=== PATIENT | male | born 1950 | race Caucasian/White ===

== ENCOUNTER 2017-02-22 19:02 | Emergency (ER) | payer MEDICARE, MEDICAID ==
[~2017-02-22] VITALS: Ht 172.7 cm; Wt 59.0 kg
[2017-02-22 19:28] VITALS: BP 105/68
[2017-02-22 20:13] LABS: Basophils # (auto) 0 uL; Basophils % (auto) 0.4 % (0.0-2.0); Eosinophils # (auto) 0 uL; Eosinophils % (auto) 0.1 % (0.0-7.0); Hematocrit 50.6 % (41.0-53.0); Hemoglobin 16.9 g/dL (13.5-17.5); Lymphocytes % (auto) 11.2 % (10.0-50.0); Mean Corpuscular Hemoglobin 32.6 pg (28.0-32.0); Mean Corpuscular Hgb Conc. 33.3 g/dL (32.0-36.0); Mean Platelet Volume 9.1 fL (7.4-10.4); Monocytes # (auto) 0.7 uL; Monocytes % (auto) 8.5 % (0.0-12.0); Neutrophils % (auto) 79.8 % (37.0-80.0); Platelet Count (auto) 153 10^3/uL (140-450); Red Cell Distribution Width 13.9 % (11.6-16.0); White Blood Cell 8.8 10^3/uL (4.4-10.8)
[2017-02-22 20:37] LABS: Albumin 3.3 g/dL (3.4-5.0); Alkaline Phosphatase 80 U/L (45-117); Anion Gap 11 (5-15); Aspartate Aminotransferase 25 U/L (15-37); BUN/Creatinine Ratio 10.8; Bilirubin, Total 0.6 mg/dL (0.2-1.0); Blood Urea Nitrogen 11 mg/dL (7-18); Calcium 8.8 mg/dL (8.5-10.1); Carbon Dioxide 28 mmol/L (21-32); Chloride 91 mmol/L (98-107); GFR African American 95 mL/min; GFR Non-African American 78 mL/min; Glucose 115 mg/dL (74-106); Magnesium 2.1 mg/dL (1.6-2.6); Potassium 3.8 mmol/L (3.5-5.1); Sodium 130 mmol/L (136-145); Total Protein 7.6 g/dL (6.4-8.2)
[2017-02-22 21:02] LABS: INR 0.96 (0.9-1.15); Partial Thromboplastin Time 34.3 sec (22.64-33.71); Prothrombin Time 10.4 sec (9.37-12.3)
[2017-02-22 21:19] LABS: Temperature: 21.9 C (20.0-25.0)
== END 2017-02-22 22:20 | disposition left against medical advice (07) ==
LOC: ER 19:04
DX: R07.89 Other chest pain (principal); R06.02 Shortness of breath; Z53.21 Procedure and treatment not carried out due to patient leaving prior to being seen by health care provider
CPT/HCPCS: 36415; 71020; 80053; 83735; 83880; 84484; 85025; 85610; 85730; 93005

== ENCOUNTER 2018-02-09 08:59 | Inpatient (IN) | payer MEDICARE, MEDICAID ==
[~2018-02-09] VITALS: Ht 172.7 cm; Wt 60.1 kg
[2018-02-09 09:47] LABS: Eosinophils # (auto) 0.2 uL; Eosinophils % (auto) 2.1 % (0.0-7.0); Hemoglobin 15.8 g/dL (13.5-17.5); Lymphocytes # (auto) 1.1 uL; Mean Corpuscular Volume 97.9 fL (80.0-100.0); Monocytes # (auto) 0.8 uL
[2018-02-09 09:48] LABS: Basophils # (auto) 0 uL; Basophils % (auto) 0.6 % (0.0-2.0); Hematocrit 44.9 % (41.0-53.0); Lymphocytes % (auto) 14.7 % (10.0-50.0); Mean Corpuscular Hemoglobin 34.4 pg (28.0-32.0); Mean Corpuscular Hgb Conc. 35.1 g/dL (32.0-36.0); Monocytes % (auto) 11.3 % (0.0-12.0); Neutrophils # (auto) 5.3 uL; Neutrophils % (auto) 71.3 % (37.0-80.0); Platelet Count (auto) 203 10^3/uL (140-450); Red Blood Cells 4.58 10^6/uL (4.5-5.90); Red Cell Distribution Width 13.8 % (11.8-14.3); White Blood Cell 7.5 10^3/uL (4.4-10.8)
[2018-02-09 09:57] LABS: Alanine Aminotransferase 19 U/L (16-61); Albumin 3.4 g/dL (3.4-5.0); Anion Gap 6 (5-15); Aspartate Aminotransferase 13 U/L (15-37); BUN/Creatinine Ratio 6.7; Blood Urea Nitrogen 7 mg/dL (7-18); Calcium 9.1 mg/dL (8.5-10.1); Carbon Dioxide 26 mmol/L (21-32); Chloride 99 mmol/L (98-107); GFR African American 91 mL/min; GFR Non-African American 75 mL/min; Glucose 124 mg/dL (74-106); Magnesium 2.1 mg/dL (1.6-2.6); Potassium 4.4 mmol/L (3.5-5.1); Sodium 131 mmol/L (136-145)
[2018-02-09 10:02] LABS: Alkaline Phosphatase 96 U/L (45-117); Bilirubin, Total 0.9 mg/dL (0.2-1.0); Total Protein 7.5 g/dL (6.4-8.2)
[2018-02-09] MEDS ORDERED: IPRATROPIUM BROM 0.5 MG/2.5ML INH SOL HHN ONE (15:15)
[2018-02-09] MEDS ORDERED: cefTRIAXone 1GM/10ml IVPUSH 10 ML IV ONE (15:15)
[2018-02-09] MEDS ORDERED: ALBUTEROL SULF 2.5 MG/0.5ML(0.5%) NEB SOLN HHN ONE (15:15)
[2018-02-09] MEDS ORDERED: methylPREDNISolone SOD SUCC 125 MG/2 ML VL IV ONE (15:15)
[2018-02-09 16:49] LABS: Magnesium 2.1 mg/dL (1.6-2.6)
[2018-02-09] MEDS ORDERED: HYDROcodone-ACET 10/325MG TAB PO ONE (17:00)
[2018-02-09] MEDS ORDERED: ALBUTEROL SULF 2.5 MG/0.5ML(0.5%) NEB SOLN NEB PRN (18:15)
[2018-02-09] MEDS ORDERED: TEMAZEPAM 15 MG CAP PO PRN (18:15)
[2018-02-09] MEDS ORDERED: NITROGLYCERIN 0.4 MG SL TAB SL PRN (18:15)
[2018-02-09] MEDS ORDERED: LORazepam 0.5 MG TAB PO PRN (18:15)
[2018-02-09] MEDS ORDERED: PROMETHAZINE HCL 25 MG/ML 1ML IV PRN (18:15)
[2018-02-09] MEDS ORDERED: ACETAMINOPHEN 500 MG TAB PO PRN (18:15)
[2018-02-09] MEDS ORDERED: LACTULOSE 20Gm/30ML SOLN PO PRN (18:15)
[2018-02-09] MEDS ORDERED: MORPHINE SULFATE 4 MG/ML SYR/VIAL IV PRN (18:15)
[2018-02-09] MEDS ORDERED: OSELTAMIVIR 75 MG CAP PO ONE (18:45)
[2018-02-09] MEDS ORDERED: ASPI81CH43 PO (20:48)
[2018-02-09] MEDS ORDERED: OMEP20CA74 PO (20:48)
[2018-02-09] MEDS ORDERED: ATOR40TA52 PO (20:48)
[2018-02-09] MEDS ORDERED: BEN10T PO (20:48)
[2018-02-09] MEDS ORDERED: METO25TA62 PO (20:48)
[2018-02-09] MEDS ORDERED: IPRIH INH (20:48)
[2018-02-09] MEDS: DOXYCYCLINE HYC 100MG/250ML 250 ML IV SCH (21:16)
[2018-02-09] MEDS: SODIUM CHLORIDE 0.9% 1,000 ML IV SCH (21:28)
[2018-02-09] MEDS: HYDROcodone-ACET 5/325MG TAB PO PRN (21:32)
[2018-02-09 21:55] VITALS: BP 119/68
[2018-02-09] MEDS: methylPREDNISolone SOD SUCC 40 MG/ML VL IV SCH (23:52)
[2018-02-10] VITALS (7 sets, daily range): BP systolic 118–158; BP diastolic 56–88
[2018-02-10] MEDS: IPRATROPIUM BROM 0.5 MG/2.5ML INH SOL NEB SCH ×4 (00:31→20:13)
[2018-02-10] MEDS: ALBUTEROL SULF 2.5 MG/0.5ML(0.5%) NEB SOLN NEB SCH ×4 (00:31→20:13)
[2018-02-10] MEDS: methylPREDNISolone SOD SUCC 40 MG/ML VL IV SCH ×4 (06:10→23:39)
[2018-02-10] MEDS: DOXYCYCLINE HYC 100MG/250ML 250 ML IV SCH ×2 (06:10→16:34)
[2018-02-10] MEDS: SODIUM CHLORIDE 0.9% 1,000 ML IV SCH (07:33)
[2018-02-10] MEDS: MORPHINE SULFATE 4 MG/ML SYR/VIAL IV PRN ×3 (08:57→21:42)
[2018-02-10] MEDS ORDERED: CILO100T PO (09:27)
[2018-02-10] MEDS ORDERED: ACET30TA15 PO (09:27)
[2018-02-10 09:41] LABS: Urine Bacteria NONE SEEN /hpf (None Seen); Urine Blood Negative /uL (Negative); Urine Specific Gravity 1.023 (1.001-1.035); Urine WBC 3 /hpf (0 - 3)
[2018-02-10] MEDS ORDERED: ENOXAPARIN SOD 40 MG/0.4 ML SYRINGE SC SCH (10:00)
[2018-02-10] MEDS ORDERED: OSELTAMIVIR 75 MG CAP PO SCH (10:00)
[2018-02-10] MEDS ORDERED: ASPirin 81 mg TAB PO ONE (11:00)
[2018-02-10] MEDS ORDERED: PANTOPRAZOLE 40 MG TAB PO ONE (11:15)
[2018-02-10] MEDS ORDERED: METOPROLOL TARTRATE 25 MG TAB PO ONE (11:15)
[2018-02-10] MEDS: HYDROcodone-ACET 5/325MG TAB PO PRN (13:52)
[2018-02-10] MEDS: METOPROLOL TARTRATE 25 MG TAB PO SCH (21:42)
[2018-02-10] MEDS ORDERED: ATORVASTATIN 20 MG TAB PO SCH (22:00)
[2018-02-11] MEDS: IPRATROPIUM BROM 0.5 MG/2.5ML INH SOL NEB SCH ×3 (00:52→13:38)
[2018-02-11] MEDS: ALBUTEROL SULF 2.5 MG/0.5ML(0.5%) NEB SOLN NEB SCH ×3 (00:52→13:39)
[2018-02-11] MEDS: HYDROcodone-ACET 5/325MG TAB PO PRN ×2 (05:01→12:06)
[2018-02-11 05:03] VITALS: BP 103/59
[2018-02-11] MEDS: methylPREDNISolone SOD SUCC 40 MG/ML VL IV SCH ×2 (05:58→12:05)
[2018-02-11] MEDS: DOXYCYCLINE HYC 100MG/250ML 250 ML IV SCH (05:58)
[2018-02-11 08:48] LABS: Basophils # (auto) 0 uL; Basophils % (auto) 0.2 % (0.0-2.0); Eosinophils # (auto) 0 uL; Eosinophils % (auto) 0.1 % (0.0-7.0); Hematocrit 39.5 % (41.0-53.0); Hemoglobin 13.5 g/dL (13.5-17.5); Lymphocytes # (auto) 0.7 uL; Lymphocytes % (auto) 7.8 % (10.0-50.0); Mean Corpuscular Hemoglobin 33.9 pg (28.0-32.0); Mean Corpuscular Hgb Conc. 34.2 g/dL (32.0-36.0); Mean Corpuscular Volume 99.1 fL (80.0-100.0); Monocytes # (auto) 0.5 uL; Monocytes % (auto) 5.1 % (0.0-12.0); Neutrophils # (auto) 8.2 uL; Neutrophils % (auto) 86.8 % (37.0-80.0); Platelet Count (auto) 197 10^3/uL (140-450); Red Blood Cells 3.99 10^6/uL (4.5-5.90); Red Cell Distribution Width 13.3 % (11.8-14.3); White Blood Cell 9.4 10^3/uL (4.4-10.8)
[2018-02-11 09:00] VITALS: BP 104/54
[2018-02-11 09:02] LABS: BUN/Creatinine Ratio 16.7; Calcium 8.8 mg/dL (8.5-10.1); Potassium 4.4 mmol/L (3.5-5.1)
[2018-02-11] MEDS: METOPROLOL TARTRATE 25 MG TAB PO SCH (09:32)
[2018-02-11] MEDS ORDERED: ASPirin 81 mg TAB PO SCH (10:00)
[2018-02-11] MEDS ORDERED: PANTOPRAZOLE 40 MG TAB PO SCH (10:00)
[2018-02-11 13:00] VITALS: BP 105/60
== END 2018-02-11 15:53 | disposition home or self-care (01) | DRG 193 ==
LOC: EDBD 08:59 → ER 08:59 → TELE 09:00 → TELE-EAST 19:54 → EAST 02-10 22:12
PROVIDERS: ADMIT Internal Medicine; ATTEND Internal Medicine
DX: J18.9 Pneumonia, unspecified organism (principal); J96.00 Acute respiratory failure, unspecified whether with hypoxia or hypercapnia; I95.9 Hypotension, unspecified; I50.9 Heart failure, unspecified; E87.1 Hypo-osmolality and hyponatremia; J44.0 Chronic obstructive pulmonary disease with (acute) lower respiratory infection; J44.1 Chronic obstructive pulmonary disease with (acute) exacerbation; I25.10 Atherosclerotic heart disease of native coronary artery without angina pectoris; F17.210 Nicotine dependence, cigarettes, uncomplicated; I25.2 Old myocardial infarction; Z95.1 Presence of aortocoronary bypass graft
CPT/HCPCS: 36415; 71046; 80048; 80053; 81001; 83605; 83735; 83880; 84484; 85025; 87040; 87070; 87205; 87804; 93005; 93306; 94640; 96372; 96374; 96375; J3490

== ENCOUNTER 2019-02-05 13:14 | Emergency (ER) | payer MEDICARE, MEDICAID ==
[~2019-02-05] VITALS: Ht 172.7 cm; Wt 59.0 kg
[~2019-02-05 13:14] MED LIST: ACET30TA15 PO; ASPI81CH43 PO; ATOR40TA52 PO; BEN10T PO; CILO100T PO; IPRIH INH; METO25TA62 PO; OMEP20CA74 PO
[2019-02-05 15:18] VITALS: BP 137/68
== END 2019-02-05 16:02 | disposition home or self-care (01) ==
LOC: ER 13:16
DX: M25.532 Pain in left wrist (principal); I25.10 Atherosclerotic heart disease of native coronary artery without angina pectoris; J44.9 Chronic obstructive pulmonary disease, unspecified; I50.9 Heart failure, unspecified; Z79.82 Long term (current) use of aspirin; Z79.899 Other long term (current) drug therapy; Z95.1 Presence of aortocoronary bypass graft; Z77.22 Contact with and (suspected) exposure to environmental tobacco smoke (acute) (chronic)
CPT/HCPCS: 29125; 73110

== ENCOUNTER 2019-03-16 10:39 | Emergency (ER) | payer MEDICARE, MEDICAID ==
[~2019-03-16] VITALS: Ht 172.7 cm; Wt 59.0 kg
[2019-03-16 10:46] VITALS: BP 136/74
[2019-03-16] MEDS ORDERED: KETOROLAC TROMETH 60MG/2ML VIAL IM ONE (12:30)
== END 2019-03-16 12:39 | disposition home or self-care (01) ==
LOC: ER 10:39
DX: M77.9 Enthesopathy, unspecified (principal); M19.032 Primary osteoarthritis, left wrist; J44.9 Chronic obstructive pulmonary disease, unspecified; Z77.22 Contact with and (suspected) exposure to environmental tobacco smoke (acute) (chronic); Z95.1 Presence of aortocoronary bypass graft; Z79.82 Long term (current) use of aspirin; Z79.899 Other long term (current) drug therapy; X50.1XXA Overexertion from prolonged static or awkward postures, initial encounter; Y93.89 Activity, other specified; Y92.89 Other specified places as the place of occurrence of the external cause; Y99.8 Other external cause status
CPT/HCPCS: 29125; 73110; 73130; 96372; 99283; J1885

== ENCOUNTER 2022-05-13 11:29 | Emergency (ER) | payer MEDICARE, MEDICAID ==
[~2022-05-13] VITALS: Ht 172.7 cm; Wt 61.2 kg
[~2022-05-13 11:29] MED LIST changes: -BEN10T PO; +BENA10TA14 PO; -METO25TA62 PO; +METO25TA93 PO
[2022-05-13] MEDS ORDERED: cefTRIAXone W LIDOCAINE 1 GM IM IM ONE (12:30)
[2022-05-13] MEDS ORDERED: CEPH-322 PO (15:26)
[2022-05-13 15:35] VITALS: BP 131/66
== END 2022-05-13 15:38 | disposition home or self-care (01) ==
LOC: ER 11:46
DX: L03.114 Cellulitis of left upper limb (principal); J44.9 Chronic obstructive pulmonary disease, unspecified; I25.10 Atherosclerotic heart disease of native coronary artery without angina pectoris; Z95.1 Presence of aortocoronary bypass graft; Z87.891 Personal history of nicotine dependence; Z79.82 Long term (current) use of aspirin; Z79.899 Other long term (current) drug therapy
CPT/HCPCS: 73130; 99283; J0696

== ENCOUNTER 2022-11-02 14:29 | Emergency (ER) | payer MEDICARE, MEDICAID ==
[~2022-11-02] VITALS: Ht 172.7 cm; Wt 62.0 kg
[~2022-11-02 14:29] MED LIST changes: +CEPH-322 PO
[2022-11-02 14:44] VITALS: BP 121/92
[2022-11-02 16:31] LABS: Basophils # (auto) 0 10 ^3/uL (0-0.2); Basophils % (auto) 0.4 % (0.0-2.0); Eosinophils # (auto) 0 10 ^3/uL (0-0.8); Eosinophils % (auto) 0.2 % (0.0-7.0); Hematocrit 48.2 % (41.0-53.0); Hemoglobin 16.3 g/dL (13.5-17.5); Lymphocytes # (auto) 0.5 10 ^3/uL (0.4-5.4); Lymphocytes % (auto) 8.3 % (10.0-50.0); Mean Corpuscular Hemoglobin 33.4 pg (28.0-32.0); Mean Corpuscular Hgb Conc. 33.8 g/dL (32.0-36.0); Mean Corpuscular Volume 98.8 fL (80.0-100.0); Monocytes # (auto) 0.7 10 ^3/uL (0-1.3); Monocytes % (auto) 11.4 % (0.0-12.0); Neutrophils # (auto) 4.7 10 ^3/uL (1.6-8.6); Neutrophils % (auto) 79.7 % (37.0-80.0); Nucleated Red Blood Cells % 0.1 %; Red Blood Cells 4.88 10^6/uL (4.5-5.90); Red Cell Distribution Width 14.3 % (11.8-14.3); White Blood Cell 5.9 10^3/uL (4.4-10.8)
[2022-11-02 16:55] LABS: Potassium 4.8 mmol/L (3.5-5.1)
[2022-11-02 17:00] LABS: Albumin 3.8 g/dL (3.4-5.0); BUN/Creatinine Ratio 9.3; Bilirubin, Total 0.7 mg/dL (0.2-1.0); Calcium 9.1 mg/dL (8.5-10.1)
[2022-11-02] MEDS: ALBUTEROL SULF 2.5 MG/0.5ML(0.5%) NEB SOLN NEB ONE ×2 (20:38→20:57)
[2022-11-02] MEDS ORDERED: FUROSEMIDE 40 MG/4 ML VIAL IM ONE (20:45)
[2022-11-02] MEDS ORDERED: DexAMETHasone SOD PHOS 10MG/1ML VIAL INJ IM ONE (20:45)
[2022-11-02] MEDS ORDERED: ALBUTEROL SULF 2.5 MG/0.5ML(0.5%) NEB SOLN NEB ONE (20:45)
[2022-11-03] MEDS: ALBUTEROL SULF 2.5 MG/0.5ML(0.5%) NEB SOLN NEB ONE ×3 (02:38→03:14)
== END 2022-11-03 03:51 | disposition left against medical advice (07) ==
LOC: ER 14:29
DX: J44.1 Chronic obstructive pulmonary disease with (acute) exacerbation (principal); E87.1 Hypo-osmolality and hyponatremia; R09.02 Hypoxemia; Z72.0 Tobacco use; Z20.822 Contact with and (suspected) exposure to COVID-19
CPT/HCPCS: 36415; 71046; 80053; 83880; 84484; 85025; 87426; 87804; 93005; 94640; 96372; 99291; J1100; J1940

== ENCOUNTER 2022-11-06 15:16 | Inpatient (IN) | payer MEDICARE, MEDICAID ==
[~2022-11-06] VITALS: Ht 172.7 cm; Wt 59.2 kg
[2022-11-06] MEDS ORDERED: ALBUTEROL SULF 2.5 MG/0.5ML(0.5%) NEB SOLN NEB ONE (16:00)
[2022-11-06] MEDS ORDERED: IPRATROPIUM BROM 0.5 MG/2.5ML INH SOL NEB ONE (16:00)
[2022-11-06] MEDS ORDERED: DexAMETHasone SOD PHOS 10MG/1ML VIAL INJ IM ONE (16:00)
[2022-11-06] MEDS ORDERED: methylPREDNISolone SOD SUCC 40 MG/ML VL IV SCH (22:00)
[2022-11-06] MEDS ORDERED: DOCUSATE SOD 100 MG CAP PO PRN (22:00)
[2022-11-06] MEDS ORDERED: ACETAMINOPHEN 325 MG TAB PO PRN (22:00)
[2022-11-06] MEDS ORDERED: ONDANSETRON HCL 4 MG/2 ML VIAL IV PRN (22:00)
[2022-11-06] MEDS ORDERED: MORPHINE SULFATE INJ 2 MG/ml SYRG IV PRN (22:00)
[2022-11-06] MEDS ORDERED: NITROGLYCERIN 0.4 MG SL TAB SL PRN (22:00)
[2022-11-06] MEDS ORDERED: hydrALAZINE HCL 20 MG/ML VL IV PRN (22:15)
[2022-11-06 22:39] LABS: Hematocrit 47.7 % (41.0-53.0); Hemoglobin 16.4 g/dL (13.5-17.5); Mean Corpuscular Hemoglobin 33.7 pg (28.0-32.0); Mean Corpuscular Hgb Conc. 34.4 g/dL (32.0-36.0); Red Blood Cells 4.87 10^6/uL (4.5-5.90); White Blood Cell 7.2 10^3/uL (4.4-10.8)
[2022-11-06 22:50] LABS: Basophils % (manual) 0 (0.0-2.0); Blast Cells 0; Eosinophils % (manual) 0 (0-7); Metamyelocytes % 0; Myelocytes % 0; Promyelocytes % 0; Reactive Lymphocytes 0
[2022-11-06 22:59] LABS: Albumin 3.5 g/dL (3.4-5.0); BUN/Creatinine Ratio 9.2; Calcium 9.3 mg/dL (8.5-10.1)
[2022-11-06 23:01] LABS: Bilirubin, Total 0.7 mg/dL (0.2-1.0); Total Protein 6.9 g/dL (6.4-8.2)
[2022-11-06 23:03] LABS: Potassium 4.7 mmol/L (3.5-5.1)
[2022-11-06 23:12] LABS: Band Neutrophils % (manual) 3; Lymphocytes % (manual) 5 (10.0-50.0); Monocytes % (manual) 3 (0-12)
[2022-11-06 23:45] VITALS: BP 116/69
[2022-11-07] MEDS: ATORVASTATIN 20 MG TAB PO SCH ×2 (02:11→22:21)
[2022-11-07] MEDS: FAMOTIDINE (10MG/ML) 2ML VL IV SCH ×3 (02:11→22:21)
[2022-11-07] MEDS: SODIUM CHLOR 0.9% PF (SALINE LOCK) 10ML VIAL/SYR IV SCH ×4 (02:16→22:21)
[2022-11-07 06:12] LABS: Basophils # (auto) 0 10 ^3/uL (0-0.2); Basophils % (auto) 0.3 % (0.0-2.0); Eosinophils # (auto) 0 10 ^3/uL (0-0.8); Hematocrit 46.8 % (41.0-53.0); Hemoglobin 16.3 g/dL (13.5-17.5); Lymphocytes # (auto) 0.4 10 ^3/uL (0.4-5.4); Lymphocytes % (auto) 7.7 % (10.0-50.0); Mean Corpuscular Hemoglobin 34.1 pg (28.0-32.0); Mean Corpuscular Hgb Conc. 34.8 g/dL (32.0-36.0); Mean Corpuscular Volume 97.9 fL (80.0-100.0); Monocytes # (auto) 0.1 10 ^3/uL (0-1.3); Monocytes % (auto) 2.1 % (0.0-12.0); Neutrophils # (auto) 4.1 10 ^3/uL (1.6-8.6); Neutrophils % (auto) 89.9 % (37.0-80.0); Nucleated Red Blood Cells % 0.2 %; Red Blood Cells 4.78 10^6/uL (4.5-5.90); Red Cell Distribution Width 13.7 % (11.8-14.3); White Blood Cell 4.6 10^3/uL (4.4-10.8)
[2022-11-07] MEDS: IPRATROPIUM BROM 0.5 MG/2.5ML INH SOL NEB PRN ×2 (06:26→18:38)
[2022-11-07] MEDS: ALBUTEROL SULF 2.5 MG/0.5ML(0.5%) NEB SOLN NEB PRN ×2 (06:26→18:38)
[2022-11-07 06:34] LABS: Potassium 4.6 mmol/L (3.5-5.1)
[2022-11-07 06:42] LABS: BUN/Creatinine Ratio 15.6; Bilirubin, Total 0.8 mg/dL (0.2-1.0); Calcium 9.1 mg/dL (8.5-10.1); Total Protein 6.9 g/dL (6.4-8.2)
[2022-11-07] MEDS: ASPirin 81 mg TAB PO SCH (09:28)
[2022-11-07] MEDS: methylPREDNISolone SOD SUCC 40 MG/ML VL IV SCH ×3 (09:28→22:21)
[2022-11-07] MEDS: SODIUM CHLORIDE 0.9% 1,000 ML IV SCH (09:45)
[2022-11-07] MEDS ORDERED: levoFLOXacin 500MG 100 ML IV ONE (10:45)
[2022-11-07] MEDS: HYDROcodone-ACET 5/325MG TAB PO PRN ×2 (11:00→20:41)
[2022-11-07 13:00] VITALS: BP 146/75
[2022-11-07 16:49] VITALS: BP 150/80
[2022-11-07 22:00] VITALS: BP 148/73
[2022-11-08] MEDS: SODIUM CHLORIDE 0.9% 1,000 ML IV SCH (02:25)
[2022-11-08 05:00] VITALS: BP 146/73
[2022-11-08] MEDS: SODIUM CHLOR 0.9% PF (SALINE LOCK) 10ML VIAL/SYR IV SCH ×3 (05:19→22:06)
[2022-11-08] MEDS: methylPREDNISolone SOD SUCC 40 MG/ML VL IV SCH ×2 (08:00→15:33)
[2022-11-08 08:07] VITALS: BP 121/86
[2022-11-08] MEDS: NICOTINE 21MG/24 HR TOPICAL PATCH TD SCH (08:48)
[2022-11-08] MEDS: levoFLOXacin 500MG 100 ML IV SCH (08:48)
[2022-11-08] MEDS: FAMOTIDINE (10MG/ML) 2ML VL IV SCH ×2 (08:49→21:59)
[2022-11-08] MEDS: ASPirin 81 mg TAB PO SCH (08:49)
[2022-11-08] MEDS: HYDROcodone-ACET 5/325MG TAB PO PRN ×2 (08:49→21:59)
[2022-11-08] MEDS ORDERED: NICOTINE 14 MG/24HR TOPICAL PATCH TD SCH (10:00)
[2022-11-08] MEDS ORDERED: OSELTAMIVIR 75 MG CAP PO ONE (11:45)
[2022-11-08 13:02] VITALS: BP 149/89
[2022-11-08] MEDS ORDERED: guaiFENesin-DM 100/10mg/5ml SYR PO PRN (14:00)
[2022-11-08 16:39] VITALS: BP 146/93
[2022-11-08] MEDS ORDERED: ALBUTEROL MEDNEB 2.5 mg/3ml NEB ONE (18:58)
[2022-11-08] MEDS: ALBUTEROL SULF 2.5 MG/0.5ML(0.5%) NEB SOLN NEB PRN (20:04)
[2022-11-08] MEDS: IPRATROPIUM BROM 0.5 MG/2.5ML INH SOL NEB PRN (20:04)
[2022-11-08 20:51] VITALS: BP 146/79
[2022-11-08] MEDS: OSELTAMIVIR 75 MG CAP PO SCH (21:59)
[2022-11-08] MEDS: ATORVASTATIN 20 MG TAB PO SCH (21:59)
[2022-11-09] VITALS (7 sets, daily range): BP systolic 138–155; BP diastolic 68–91
[2022-11-09] MEDS: methylPREDNISolone SOD SUCC 40 MG/ML VL IV SCH ×2 (00:15→08:40)
[2022-11-09] MEDS: SODIUM CHLORIDE 0.9% 1,000 ML IV SCH (00:23)
[2022-11-09] MEDS: FAMOTIDINE (10MG/ML) 2ML VL IV SCH (08:40)
[2022-11-09] MEDS: ASPirin 81 mg TAB PO SCH (08:40)
[2022-11-09] MEDS: levoFLOXacin 500MG 100 ML IV SCH (08:41)
[2022-11-09] MEDS: NICOTINE 21MG/24 HR TOPICAL PATCH TD SCH (08:41)
[2022-11-09] MEDS: OSELTAMIVIR 75 MG CAP PO SCH (10:00)
[2022-11-09] MEDS ORDERED: DOXY-332 PO (13:18)
[2022-11-09] MEDS ORDERED: TAMIFLU PO (13:18)
== END 2022-11-09 17:50 | disposition home or self-care (01) | DRG 189 ==
LOC: ER 15:19 → TELE 21:55 → TELE-WESTW 11-07 08:16
PROVIDERS: ADMIT Nurse Practitioner Family; ATTEND Internal Medicine
DX: J96.01 Acute respiratory failure with hypoxia (principal); J44.1 Chronic obstructive pulmonary disease with (acute) exacerbation; E87.1 Hypo-osmolality and hyponatremia; J98.11 Atelectasis; J10.1 Influenza due to other identified influenza virus with other respiratory manifestations; F17.210 Nicotine dependence, cigarettes, uncomplicated; R00.0 Tachycardia, unspecified; R73.9 Hyperglycemia, unspecified; Z20.822 Contact with and (suspected) exposure to COVID-19; I25.10 Atherosclerotic heart disease of native coronary artery without angina pectoris; Z78.9 Other specified health status; Z79.82 Long term (current) use of aspirin; Z79.899 Other long term (current) drug therapy; Z95.1 Presence of aortocoronary bypass graft; Z71.6 Tobacco abuse counseling
CPT/HCPCS: 36415; 36600; 71046; 80053; 82805; 84484; 85007; 85025; 85027; 87426; 87804; 93005; 94640; 96365; 96366; 96372; 96375; G0378; J1100; J1956; J3490

== ENCOUNTER 2023-06-10 08:30 | Emergency (ER) | payer MEDICARE, MEDICAID ==
[~2023-06-10] VITALS: Ht 165.1 cm; Wt 59.1 kg
[~2023-06-10 08:30] MED LIST changes: -BENA10TA14 PO; +BENA10TA16 PO; -CEPH-322 PO; +DOXY-448 PO; +TAMIFLU PO
[2023-06-10 08:49] VITALS: BP 136/92
[2023-06-10 10:36] LABS: Hemoglobin 15.9 g/dL (13.5-17.5); Lymphocytes # (auto) 1.3 10 ^3/uL (0.4-5.4); Mean Corpuscular Hgb Conc. 34.3 g/dL (32.0-36.0); Monocytes # (auto) 0.8 10 ^3/uL (0-1.3); White Blood Cell 9.3 10^3/uL (4.4-10.8)
[2023-06-10 10:38] LABS: Basophils # (auto) 0.1 10 ^3/uL (0-0.2); Basophils % (auto) 0.5 % (0.0-2.0); Eosinophils # (auto) 0.1 10 ^3/uL (0-0.8); Eosinophils % (auto) 0.6 % (0.0-7.0); Hematocrit 46.3 % (41.0-53.0); Lymphocytes % (auto) 14.3 % (10.0-50.0); Mean Corpuscular Hemoglobin 33.9 pg (28.0-32.0); Monocytes % (auto) 8.9 % (0.0-12.0); Neutrophils % (auto) 75.7 % (37.0-80.0); Red Blood Cells 4.67 10^6/uL (4.5-5.90); Red Cell Distribution Width 14.4 % (11.8-14.3)
[2023-06-10 10:46] LABS: INR 1.16 (0.9-1.15); Partial Thromboplastin Time 34.5 SEC (24.5-34.5)
[2023-06-10 11:05] LABS: Albumin 3.9 g/dL (3.4-5.0); Calcium 9.3 mg/dL (8.5-10.1); Potassium 4.2 mmol/L (3.5-5.1)
[2023-06-10 11:10] LABS: BUN/Creatinine Ratio 9.6 (10.0-20.0); Bilirubin, Total 0.6 mg/dL (0.2-1.0); Total Protein 7.3 g/dL (6.4-8.2)
== END 2023-06-10 13:18 | disposition home or self-care (01) ==
LOC: ER 08:30 → EDBD 08:30 → EDSEX 08:30 → ER 13:18
DX: T81.30XA Disruption of wound, unspecified, initial encounter (principal); F17.210 Nicotine dependence, cigarettes, uncomplicated; J44.9 Chronic obstructive pulmonary disease, unspecified; K21.9 Gastro-esophageal reflux disease without esophagitis; Z79.01 Long term (current) use of anticoagulants; Z85.828 Personal history of other malignant neoplasm of skin
CPT/HCPCS: 36415; 80053; 85025; 85610; 85730

== ENCOUNTER 2024-04-27 12:19 | Emergency (ER) | payer MEDICARE, MEDICAID ==
[~2024-04-27] VITALS: Ht 172.7 cm; Wt 59.0 kg
[~2024-04-27 12:19] MED LIST changes: -CILO100T PO; +CILO100T3 PO
[2024-04-27 13:07] LABS: Basophils # (auto) 0 10 ^3/uL (0-0.2); Basophils % (auto) 0.3 % (0.0-2.0); Eosinophils # (auto) 0.3 10 ^3/uL (0-0.8); Eosinophils % (auto) 5.3 % (0.0-7.0); Hematocrit 41.8 % (41.0-53.0); Hemoglobin 14.2 g/dL (13.5-17.5); Lymphocytes # (auto) 1.3 10 ^3/uL (0.4-5.4); Lymphocytes % (auto) 20.7 % (10.0-50.0); Mean Corpuscular Hemoglobin 32.4 pg (28.0-32.0); Mean Corpuscular Hgb Conc. 34.1 g/dL (32.0-36.0); Mean Corpuscular Volume 95.1 fL (80.0-100.0); Monocytes # (auto) 0.6 10 ^3/uL (0-1.3); Monocytes % (auto) 10.4 % (0.0-12.0); Neutrophils # (auto) 3.9 10 ^3/uL (1.6-8.6); Neutrophils % (auto) 63.3 % (37.0-80.0); Red Blood Cells 4.39 10^6/uL (4.5-5.90); Red Cell Distribution Width 14.2 % (11.8-14.3); White Blood Cell 6.2 10^3/uL (4.4-10.8)
[2024-04-27 13:28] LABS: Alanine Aminotransferase 15 U/L (7-40); Albumin 3.9 g/dL (3.2-4.8); Alkaline Phosphatase 101 U/L (46-116); Anion Gap 5 (5-15); Aspartate Aminotransferase 18 U/L (13-40); Calcium 9.5 mg/dL (8.7-10.4); Carbon Dioxide 25 mmol/L (20-30); Chloride 103 mmol/L (98-107); Glucose 87 mg/dL (74-106); Lipase 29 U/L (12-53); Potassium 4.1 mmol/L (3.5-5.1); Sodium 133 mmol/L (136-145)
[2024-04-27 13:29] LABS: Bilirubin, Total 0.4 mg/dL (0.2-1.0); Total Protein 6.4 g/dL (5.7-8.2)
[2024-04-27 13:36] LABS: BUN/Creatinine Ratio 5.7 (10.0-20.0); Blood Urea Nitrogen < 5 mg/dL (9-23)
[2024-04-27 13:53] LABS: Partial Thromboplastin Time 28.5 SEC (24.5-34.5); Prothrombin Time 10.6 sec (9.3-11.8)
[2024-04-27 17:40] LABS: Urine Bacteria None Seen /hpf (None Seen)
[2024-04-27 18:32] LABS: Amphetamine Screen, Urine Neg (NEGATIVE); Barbiturate Scree,Urine Neg (NEGATIVE); Benzodiazephine Screen, Urine Neg (NEGATIVE); Cocaine Screen, Urine Neg (NEGATIVE); Opiate Scree,Urine Pos (NEGATIVE); Phencyclidine Screen, Urine Neg (NEGATIVE)
[2024-04-27 18:33] LABS: Cannabinoid Screen, Urine Neg (NEGATIVE)
[2024-04-27 18:34] LABS: Urine Blood Negative /uL (Negative); Urine Clarity Clear (Clear); Urine Color Yellow (Yellow); Urine Protein, UAD Negative (Negative); Urine Specific Gravity 1.015 (1.001-1.035); Urine Urobilinogen Normal (Negative); Urine WBC 1 /hpf (0 - 3); Urine pH 5.5 (5.0-9.0)
[2024-04-27] MEDS ORDERED: LACT10SO3 PO (18:53)
[2024-04-27 21:00] VITALS: BP 113/63; PULSE 76; RESP 18; TEMP 97.8; O2SAT 100
[2024-04-27] MEDS: HYDROcodone-ACET 10/325MG TAB PO ONE (21:34)
[2024-04-27] MEDS: SODIUM CHLORIDE 0.9% 1,000 ML IVB ONE (21:34)
== END 2024-04-27 21:38 | disposition home or self-care (01) ==
LOC: EDBD 12:19 → ER 12:19
DX: K59.00 Constipation, unspecified (principal); J44.9 Chronic obstructive pulmonary disease, unspecified; F17.210 Nicotine dependence, cigarettes, uncomplicated; Z79.899 Other long term (current) drug therapy
CPT/HCPCS: 36415; 74176; 80053; 80307; 81001; 83605; 83690; 84484; 85025; 85610; 85730; 87040; 93005

== ENCOUNTER 2024-06-28 16:46 | Inpatient (IN) | payer MEDICARE, MEDICAID ==
[~2024-06-28] VITALS: Ht 162.6 cm; Wt 52.4 kg
[~2024-06-28 16:46] MED LIST changes: +LACT10SO3 PO
[2024-06-28 18:06] LABS: Basophils # (auto) 0 10 ^3/uL (0-0.2); Basophils % (auto) 0.6 % (0.0-2.0); Eosinophils # (auto) 0.1 10 ^3/uL (0-0.8); Eosinophils % (auto) 1.8 % (0.0-7.0); Hematocrit 40.9 % (41.0-53.0); Hemoglobin 14.4 g/dL (13.5-17.5); Lymphocytes # (auto) 1.3 10 ^3/uL (0.4-5.4); Lymphocytes % (auto) 20.4 % (10.0-50.0); Mean Corpuscular Hemoglobin 32.6 pg (28.0-32.0); Mean Corpuscular Hgb Conc. 35.3 g/dL (32.0-36.0); Mean Corpuscular Volume 92.3 fL (80.0-100.0); Monocytes # (auto) 0.5 10 ^3/uL (0-1.3); Monocytes % (auto) 8.2 % (0.0-12.0); Neutrophils # (auto) 4.4 10 ^3/uL (1.6-8.6); Nucleated Red Blood Cells % 0.1 %; Red Blood Cells 4.43 10^6/uL (4.5-5.90); Red Cell Distribution Width 14.2 % (11.8-14.3); White Blood Cell 6.3 10^3/uL (4.4-10.8)
[2024-06-28 18:24] LABS: Alanine Aminotransferase 19 U/L (7-40); Albumin 4.1 g/dL (3.2-4.8); Alkaline Phosphatase 111 U/L (46-116); Anion Gap 7 (5-15); Aspartate Aminotransferase 22 U/L (13-40); BUN/Creatinine Ratio 11.4 (10.0-20.0); Blood Urea Nitrogen 9 mg/dL (9-23); Calcium 9.8 mg/dL (8.7-10.4); Carbon Dioxide 24 mmol/L (20-30); Chloride 100 mmol/L (98-107); Glucose 124 mg/dL (74-106); Sodium 131 mmol/L (136-145)
[2024-06-28 18:25] LABS: Bilirubin, Total 0.4 mg/dL (0.2-1.0); Total Protein 6.6 g/dL (5.7-8.2)
[2024-06-28 18:57] VITALS: PULSE 98; RESP 18; O2SAT 100
[2024-06-28 19:14] LABS: Urine Bacteria None Seen /hpf (None Seen)
[2024-06-28 19:28] LABS: Urine Blood Negative /uL (Negative); Urine Clarity Clear (Clear); Urine Color Yellow (Yellow); Urine Protein, UAD Negative (Negative); Urine Specific Gravity 1.017 (1.001-1.035); Urine Urobilinogen Normal (Negative); Urine WBC <1 /hpf (0 - 3); Urine pH 5.5 (5.0-9.0)
[2024-06-28] MEDS: SODIUM CHLORIDE 0.9% 1,000 ML IV ONE (19:32)
[2024-06-28] MEDS: HYDROcodone-ACET 5/325MG TAB PO ONE (21:32)
[2024-06-29] MEDS: cefTRIAXone 1GM/50ML D5W 50 ML IV ONE (01:42)
[2024-06-29] MEDS ORDERED: ONDANSETRON HCL 4 MG/2 ML VIAL IV PRN (05:30)
[2024-06-29] MEDS: ACYCLOVIR 400 MG TAB PO SCH (06:24)
[2024-06-29] MEDS: HYDROcodone-ACET 5/325MG TAB PO PRN (07:58)
[2024-06-29 08:32] VITALS: PULSE 60; RESP 16; O2SAT 96
[2024-06-29] MEDS: METOPROLOL SUCCINATE XL 50 MG TAB PO SCH (10:00)
[2024-06-29] MEDS: CLOPIDOGREL BISULFATE 75 MG TAB PO SCH (10:09)
[2024-06-29] MEDS: MEMANTINE HCL 5 MG TAB PO SCH (10:09)
[2024-06-29 13:20] VITALS: BP 95/54; PULSE 60; RESP 20; TEMP 97.9; O2SAT 96
[2024-06-29 13:41] VITALS: PULSE 61; RESP 18; O2SAT 93
[2024-06-29] MEDS: SODIUM CHLORIDE 0.9% 1,000 ML IV SCH (14:17)
[2024-06-29 16:39] VITALS: BP 147/72; PULSE 60; RESP 16; TEMP 98.8; O2SAT 100
[2024-06-29 20:00] VITALS: PULSE 61; RESP 17; O2SAT 99
[2024-06-29 21:00] VITALS: BP 145/67; PULSE 61; RESP 17; TEMP 97.9; O2SAT 99
[2024-06-29] MEDS: DONEPEZIL HYDROCHLORIDE 5 MG TAB PO SCH (22:39)
[2024-06-29] MEDS: ATORVASTATIN 20 MG TAB PO SCH (22:40)
[2024-06-30] VITALS (8 sets, daily range): BP systolic 112–164; BP diastolic 60–77; PULSE 57–90; RESP 16–20; TEMP 97.3–98.3; O2SAT 94–99
[2024-06-30 07:19] LABS: Chloride 105 mmol/L (98-107); Potassium 3.8 mmol/L (3.5-5.1); Sodium 134 mmol/L (136-145)
[2024-06-30 07:20] LABS: Anion Gap 7 (5-15); Carbon Dioxide 22 mmol/L (20-30)
[2024-06-30 07:21] LABS: Calcium 8.8 mg/dL (8.7-10.4)
[2024-06-30 07:26] LABS: BUN/Creatinine Ratio 9.5 (10.0-20.0); Blood Urea Nitrogen 6 mg/dL (9-23); Glucose 62 mg/dL (74-106)
[2024-06-30] MEDS: ACYCLOVIR 200 MG/5 ML SUSP PO SCH (18:22)
[2024-06-30] MEDS: LIDOCAINE HCL 5 % TOP OINT 35 GM TOP PRN (18:22)
[2024-07-01] VITALS (8 sets, daily range): BP systolic 111–166; BP diastolic 44–81; PULSE 60–70; RESP 14–20; TEMP 97.6–98.4; O2SAT 92–100
[2024-07-01] MEDS: ACYCLOVIR 400 MG TAB PO SCH (14:00)
[2024-07-01] MEDS: ACETAMINOPHEN 325 MG TAB PO PRN (21:38)
[2024-07-02] VITALS (8 sets, daily range): BP systolic 131–142; BP diastolic 65–78; PULSE 60; RESP 16–20; TEMP 97.5–98.3; O2SAT 94–99
[2024-07-03 01:00] VITALS: BP 127/70; PULSE 60; RESP 19; TEMP 98; O2SAT 99
[2024-07-03 05:00] VITALS: BP 147/73; PULSE 60; RESP 17; TEMP 98; O2SAT 99
[2024-07-03 08:00] VITALS: PULSE 60; RESP 18; O2SAT 98
[2024-07-03 09:00] VITALS: BP 152/65; PULSE 60; RESP 18; TEMP 97.7; O2SAT 98
[2024-07-03] MEDS ORDERED: ACYC400T16 PO (10:56)
[2024-07-03 13:47] VITALS: BP 158/79; PULSE 60; RESP 18; TEMP 97.8; O2SAT 100
== END 2024-07-03 14:30 | disposition home or self-care (01) | DRG 596 ==
LOC: ER 16:46 → OVERFLOW 06-29 05:31 → EAST 06-29 13:39
PROVIDERS: ADMIT Nurse Practitioner; ATTEND Family Medicine
DX: B02.9 Zoster without complications (principal); E78.00 Pure hypercholesterolemia, unspecified; F03.90 Unspecified dementia, unspecified severity, without behavioral disturbance, psychotic disturbance, mood disturbance, and anxiety; F17.210 Nicotine dependence, cigarettes, uncomplicated; I10 Essential (primary) hypertension; I25.10 Atherosclerotic heart disease of native coronary artery without angina pectoris; J44.9 Chronic obstructive pulmonary disease, unspecified; Z95.1 Presence of aortocoronary bypass graft; Z79.02 Long term (current) use of antithrombotics/antiplatelets
CPT/HCPCS: 36415; 71045; 80048; 80053; 81001; 85025; 87045; 87427; G0378; J0133

== ENCOUNTER 2024-07-17 09:30 | Inpatient (IN) | payer MEDICARE, MEDICAID ==
[2024-07-17] VITALS (26 sets, daily range): BP systolic 97–130; BP diastolic 50–92; PULSE 78–111; RESP 12–24; TEMP 98.7–99.5; O2SAT 90–100
[~2024-07-17] VITALS: Ht 172.7 cm; Wt 64.9 kg
[~2024-07-17 09:30] MED LIST changes: +ACYC400T16 PO; -DOXY-448 PO; +DOXY100C79 PO
[2024-07-17] MEDS: LIDOCAINE 2%HCL (LOCAL ANESTH.) INJ 10ml MDV ONE ×2 (10:07→12:03)
[2024-07-17] MEDS: MIDAZOLAM HCL 2MG/2ML 2ml VIAL (1mg/ml) ONE (10:21)
[2024-07-17] MEDS: fentaNYL CITRATE 100 MCG/2 ML VL ONE (10:21)
[2024-07-17] MEDS: HYDROcodone-ACET 10/325MG TAB PO PRN (14:25)
[2024-07-17] MEDS: HYDROcodone-ACET 5/325MG TAB ONE (14:26)
[2024-07-17] MEDS: HYDROcodone-ACET 10/325MG TAB ONE (14:26)
[2024-07-17] MEDS ORDERED: ONDANSETRON HCL 4 MG/2 ML VIAL IV PRN (15:15)
[2024-07-17] MEDS ORDERED: NITROGLYCERIN 0.4 MG SL TAB SL PRN (15:30)
[2024-07-17] MEDS ORDERED: IPRATROPIUM BROMIDE HFA AER IN SCH (18:00)
[2024-07-17] MEDS: MORPHINE SULFATE INJ 2 MG/ml SYRG IV PRN (18:08)
[2024-07-17] MEDS: SODIUM CHLORIDE 0.9% 1,000 ML IV SCH (18:08)
[2024-07-17] MEDS: BENAZEPRIL HCL 10 MG TAB PO SCH (20:36)
[2024-07-17] MEDS: CILOSTAZOL 100 MG TAB PO SCH (20:37)
[2024-07-17] MEDS: METOPROLOL SUCCINATE XL 50 MG TAB PO SCH (20:38)
[2024-07-17] MEDS: IPRATROPIUM BROM 0.5 MG/2.5ML INH SOL ONE (21:50)
[2024-07-17] MEDS: ALBUTEROL SULF 2.5 MG/0.5ML(0.5%) NEB SOLN ONE (21:50)
[2024-07-17] MEDS: TEMAZEPAM 15 MG CAP PO PRN (22:48)
[2024-07-18] VITALS (11 sets, daily range): BP systolic 106–134; BP diastolic 55–75; PULSE 63–114; RESP 16–24; TEMP 97.9–98.4; O2SAT 93–98
[2024-07-18 07:24] LABS: Basophils # (auto) 0.1 10 ^3/uL (0-0.2); Eosinophils # (auto) 0.1 10 ^3/uL (0-0.8); Eosinophils % (auto) 2.8 % (0.0-7.0); Hematocrit 35.9 % (41.0-53.0); Hemoglobin 12.4 g/dL (13.5-17.5); Lymphocytes # (auto) 0.9 10 ^3/uL (0.4-5.4); Lymphocytes % (auto) 17.2 % (10.0-50.0); Mean Corpuscular Hemoglobin 33.1 pg (28.0-32.0); Mean Corpuscular Hgb Conc. 34.4 g/dL (32.0-36.0); Mean Corpuscular Volume 96.1 fL (80.0-100.0); Monocytes # (auto) 0.4 10 ^3/uL (0-1.3); Monocytes % (auto) 8.3 % (0.0-12.0); Neutrophils # (auto) 3.7 10 ^3/uL (1.6-8.6); Neutrophils % (auto) 70.7 % (37.0-80.0); Nucleated Red Blood Cells % 0.7 %; Platelet Count (auto) 185 10^3/uL (140-450); Red Blood Cells 3.74 10^6/uL (4.5-5.90); Red Cell Distribution Width 15.5 % (11.8-14.3); White Blood Cell 5.2 10^3/uL (4.4-10.8)
[2024-07-18 07:42] LABS: Alanine Aminotransferase 11 U/L (7-40); Albumin 3.3 g/dL (3.2-4.8); Alkaline Phosphatase 90 U/L (46-116); Anion Gap 1 (5-15); Aspartate Aminotransferase 15 U/L (13-40); BUN/Creatinine Ratio 7.7 (10.0-20.0); Blood Urea Nitrogen 7 mg/dL (9-23); Calcium 9.2 mg/dL (8.7-10.4); Carbon Dioxide 29 mmol/L (20-30); Chloride 105 mmol/L (98-107); Glucose 85 mg/dL (74-106); Potassium 4.3 mmol/L (3.5-5.1); Sodium 135 mmol/L (136-145)
[2024-07-18 07:43] LABS: Bilirubin, Total 0.6 mg/dL (0.2-1.0); Total Protein 5.4 g/dL (5.7-8.2)
[2024-07-18] MEDS: ATORVASTATIN 20 MG TAB PO SCH (09:24)
[2024-07-18] MEDS: PANTOPRAZOLE 40 MG TAB PO SCH (09:25)
[2024-07-18] MEDS: NICOTINE 14 MG/24HR TOPICAL PATCH TD ONE (14:31)
[2024-07-18 16:06] LABS: Urine Bacteria None Seen /hpf (None Seen)
[2024-07-18 16:18] LABS: Urine Blood Negative /uL (Negative); Urine Clarity Clear (Clear); Urine Color Light-Yellow (Yellow); Urine Protein, UAD Negative (Negative); Urine Specific Gravity 1.011 (1.001-1.035); Urine Urobilinogen Normal (Negative); Urine WBC 1 /hpf (0 - 3); Urine pH 5.5 (5.0-9.0)
[2024-07-18] MEDS: IPRATROPIUM BROM 0.5 MG/2.5ML INH SOL NEB PRN (18:40)
[2024-07-18] MEDS: ALBUTEROL SULF 2.5 MG/0.5ML(0.5%) NEB SOLN NEB PRN (18:41)
[2024-07-18] MEDS: IPRATROPIUM BROM 0.5 MG/2.5ML INH SOL NEB ONE (19:45)
[2024-07-18] MEDS: ALBUTEROL SULF 2.5 MG/0.5ML(0.5%) NEB SOLN NEB ONE (19:45)
[2024-07-18] MEDS: DOCUSATE SOD 100 MG CAP PO PRN (20:58)
[2024-07-18] MEDS: LORazepam 0.5 MG TAB PO ONE (20:59)
[2024-07-18] MEDS: PANTOPRAZOLE 40 MG/10 ML VIAL INJ IV ONE (20:59)
[2024-07-18] MEDS: methylPREDNISolone SOD SUCC 125 MG/2 ML VL IV ONE (20:59)
[2024-07-18] MEDS: PRAMIPEXOLE DIHYDROCHLORIDE MO 0.25 MG TAB PO SCH (21:01)
[2024-07-19] VITALS (13 sets, daily range): BP systolic 119–157; BP diastolic 55–79; PULSE 65–98; RESP 16–20; TEMP 97.4–98.3; O2SAT 92–99
[2024-07-19] MEDS: ASPirin 81 mg TAB PO SCH (09:47)
[2024-07-19] MEDS: NICOTINE 14 MG/24HR TOPICAL PATCH TD SCH (09:48)
[2024-07-19 10:02] LABS: Basophils # (auto) 0 10 ^3/uL (0-0.2); Basophils % (auto) 0.2 % (0.0-2.0); Eosinophils # (auto) 0 10 ^3/uL (0-0.8); Hematocrit 38.4 % (41.0-53.0); Lymphocytes # (auto) 0.3 10 ^3/uL (0.4-5.4); Lymphocytes % (auto) 8.4 % (10.0-50.0); Mean Corpuscular Hemoglobin 32.4 pg (28.0-32.0); Mean Corpuscular Hgb Conc. 33.9 g/dL (32.0-36.0); Mean Corpuscular Volume 95.6 fL (80.0-100.0); Monocytes # (auto) 0.1 10 ^3/uL (0-1.3); Monocytes % (auto) 2.3 % (0.0-12.0); Neutrophils # (auto) 3.2 10 ^3/uL (1.6-8.6); Neutrophils % (auto) 89.1 % (37.0-80.0); Nucleated Red Blood Cells % 0.1 %; Platelet Count (auto) 180 10^3/uL (140-450); Red Blood Cells 4.02 10^6/uL (4.5-5.90); Red Cell Distribution Width 15.2 % (11.8-14.3); White Blood Cell 3.6 10^3/uL (4.4-10.8)
[2024-07-19 10:04] LABS: Chloride 101 mmol/L (98-107); Potassium 4.3 mmol/L (3.5-5.1)
[2024-07-19 10:05] LABS: Anion Gap 3 (5-15); Carbon Dioxide 26 mmol/L (20-30)
[2024-07-19 10:06] LABS: Calcium 9.2 mg/dL (8.7-10.4)
[2024-07-19 10:10] LABS: BUN/Creatinine Ratio 7.9 (10.0-20.0); Blood Urea Nitrogen 7 mg/dL (9-23)
[2024-07-19 10:33] LABS: Glucose 261 mg/dL (74-106); Sodium 130 mmol/L (136-145)
[2024-07-20] VITALS (13 sets, daily range): BP systolic 120–140; BP diastolic 60–76; PULSE 65–90; RESP 16–18; TEMP 97.4–98.2; O2SAT 91–97
[2024-07-20 07:09] LABS: Anion Gap 4 (5-15); Calcium 8.7 mg/dL (8.7-10.4); Carbon Dioxide 28 mmol/L (20-30); Chloride 103 mmol/L (98-107); Potassium 3.4 mmol/L (3.5-5.1)
[2024-07-20 07:15] LABS: BUN/Creatinine Ratio 13.9 (10.0-20.0); Blood Urea Nitrogen 10 mg/dL (9-23); Glucose 88 mg/dL (74-106)
[2024-07-20 07:16] LABS: Sodium 135 mmol/L (136-145)
[2024-07-20] MEDS: POTASSIUM CHL 20 Meq TABLET PO ONE (14:49)
[2024-07-21] VITALS (13 sets, daily range): BP systolic 113–150; BP diastolic 68–72; PULSE 68–89; RESP 16–18; TEMP 97.5–98; O2SAT 94–97
[2024-07-21] MEDS ORDERED: IOHEXOL 300 MG/ML 100ML BOTTLE IJ ONE (13:09)
[2024-07-22] VITALS (10 sets, daily range): BP systolic 97–153; BP diastolic 41–78; PULSE 62–96; RESP 15–20; TEMP 97.5–98.7; O2SAT 89–100
[2024-07-23] VITALS (14 sets, daily range): BP systolic 123–144; BP diastolic 65–73; PULSE 67–94; RESP 18–20; TEMP 97.5–98.7; O2SAT 91–98
[2024-07-24] VITALS (14 sets, daily range): BP systolic 117–142; BP diastolic 70–79; PULSE 75–101; RESP 16–20; TEMP 97.7–98.3; O2SAT 93–100
[2024-07-24 05:52] LABS: Basophils # (auto) 0 10 ^3/uL (0-0.2); Basophils % (auto) 0.2 % (0.0-2.0); Eosinophils # (auto) 0.2 10 ^3/uL (0-0.8); Eosinophils % (auto) 3.7 % (0.0-7.0); Hematocrit 36.9 % (41.0-53.0); Hemoglobin 13.1 g/dL (13.5-17.5); Lymphocytes # (auto) 0.9 10 ^3/uL (0.4-5.4); Lymphocytes % (auto) 15.9 % (10.0-50.0); Mean Corpuscular Hemoglobin 33.4 pg (28.0-32.0); Mean Corpuscular Hgb Conc. 35.4 g/dL (32.0-36.0); Mean Corpuscular Volume 94.4 fL (80.0-100.0); Monocytes # (auto) 0.3 10 ^3/uL (0-1.3); Monocytes % (auto) 5.4 % (0.0-12.0); Neutrophils # (auto) 4.1 10 ^3/uL (1.6-8.6); Neutrophils % (auto) 74.8 % (37.0-80.0); Platelet Count (auto) 233 10^3/uL (140-450); Red Blood Cells 3.91 10^6/uL (4.5-5.90); White Blood Cell 5.5 10^3/uL (4.4-10.8)
[2024-07-24 06:01] LABS: Alanine Aminotransferase 14 U/L (7-40); Albumin 3.6 g/dL (3.2-4.8); Alkaline Phosphatase 83 U/L (46-116); Anion Gap 5 (5-15); Aspartate Aminotransferase 14 U/L (13-40); BUN/Creatinine Ratio 10.7 (10.0-20.0); Bilirubin, Total 0.7 mg/dL (0.2-1.0); Blood Urea Nitrogen 9 mg/dL (9-23); Calcium 9.2 mg/dL (8.7-10.4); Carbon Dioxide 27 mmol/L (20-30); Chloride 99 mmol/L (98-107); Glucose 104 mg/dL (74-106); Potassium 3.9 mmol/L (3.5-5.1); Sodium 131 mmol/L (136-145); Total Protein 5.8 g/dL (5.7-8.2)
[2024-07-25] VITALS (13 sets, daily range): BP systolic 109–146; BP diastolic 55–76; PULSE 65–81; RESP 16–20; TEMP 97.8–98.1; O2SAT 92–100
[2024-07-26] VITALS (14 sets, daily range): BP systolic 104–135; BP diastolic 56–75; PULSE 64–91; RESP 16–20; TEMP 97.6–98.1; O2SAT 88–99
[2024-07-26 09:24] LABS: Chloride 97 mmol/L (98-107); Potassium 3.8 mmol/L (3.5-5.1); Sodium 129 mmol/L (136-145)
[2024-07-26 09:25] LABS: Anion Gap 4 (5-15); Carbon Dioxide 28 mmol/L (20-30)
[2024-07-26 09:30] LABS: Blood Urea Nitrogen 6 mg/dL (9-23); Glucose 185 mg/dL (74-106)
[2024-07-26 09:35] LABS: Basophils # (auto) 0 10 ^3/uL (0-0.2); Basophils % (auto) 0.1 % (0.0-2.0); Eosinophils # (auto) 0.3 10 ^3/uL (0-0.8); Eosinophils % (auto) 6.1 % (0.0-7.0); Hematocrit 37.8 % (41.0-53.0); Hemoglobin 13.1 g/dL (13.5-17.5); Lymphocytes # (auto) 0.8 10 ^3/uL (0.4-5.4); Lymphocytes % (auto) 14.9 % (10.0-50.0); Mean Corpuscular Hemoglobin 33.1 pg (28.0-32.0); Mean Corpuscular Hgb Conc. 34.8 g/dL (32.0-36.0); Mean Corpuscular Volume 95.2 fL (80.0-100.0); Monocytes # (auto) 0.4 10 ^3/uL (0-1.3); Neutrophils % (auto) 71.9 % (37.0-80.0); Nucleated Red Blood Cells % 0.1 %; Platelet Count (auto) 231 10^3/uL (140-450); Red Blood Cells 3.97 10^6/uL (4.5-5.90); Red Cell Distribution Width 15.2 % (11.8-14.3); White Blood Cell 5.5 10^3/uL (4.4-10.8)
[2024-07-26 10:58] LABS: Platelet Estimate Adequate
[2024-07-27] VITALS (9 sets, daily range): BP systolic 119–127; BP diastolic 54–67; PULSE 72–85; RESP 16–20; TEMP 36.6; O2SAT 95–100
[2024-07-27 07:07] LABS: Chloride 96 mmol/L (98-107); Potassium 4.2 mmol/L (3.5-5.1); Sodium 128 mmol/L (136-145)
[2024-07-27 07:08] LABS: Anion Gap 4 (5-15); Calcium 9.2 mg/dL (8.7-10.4); Carbon Dioxide 28 mmol/L (20-30)
[2024-07-27 07:13] LABS: Blood Urea Nitrogen 10 mg/dL (9-23); Glucose 93 mg/dL (74-106)
[2024-07-27] MEDS ORDERED: IPR002IS HHN (15:03)
[2024-07-27] MEDS ORDERED: ALBU1.258 IN (15:03)
[2024-07-27] MEDS: HYDROcodone-ACET 10/325MG TAB PO PRN (15:24)
== END 2024-07-27 18:12 | disposition home health service (06) | DRG 181 ==
LOC: XYW 09:30 → TELE 15:20 → TELE-WESTW 16:50
PROVIDERS: ADMIT Nurse Practitioner Family; ATTEND Internal Medicine
PROC: 0BBL3ZX Excision of Left Lung, Percutaneous Approach, Diagnostic (ICD-10-PCS; principal; 2024-07-17)
PROC: 0W9B30Z Drainage of Left Pleural Cavity with Drainage Device, Percutaneous Approach (ICD-10-PCS; 2024-07-17)
DX: C34.92 Malignant neoplasm of unspecified part of left bronchus or lung (principal); J95.811 Postprocedural pneumothorax; J96.10 Chronic respiratory failure, unspecified whether with hypoxia or hypercapnia; J44.9 Chronic obstructive pulmonary disease, unspecified; I10 Essential (primary) hypertension; E78.5 Hyperlipidemia, unspecified; L89.151 Pressure ulcer of sacral region, stage 1; T81.82XA Emphysema (subcutaneous) resulting from a procedure, initial encounter; I73.9 Peripheral vascular disease, unspecified; I25.10 Atherosclerotic heart disease of native coronary artery without angina pectoris; F17.210 Nicotine dependence, cigarettes, uncomplicated; E27.8 Other specified disorders of adrenal gland; K21.9 Gastro-esophageal reflux disease without esophagitis; Z95.0 Presence of cardiac pacemaker; Z95.1 Presence of aortocoronary bypass graft; X58.XXXA Exposure to other specified factors, initial encounter; Y93.89 Activity, other specified; Y92.89 Other specified places as the place of occurrence of the external cause; Y99.8 Other external cause status
CPT/HCPCS: 10005; 36415; 70470; 71045; 71250; 71260; 74177; 77012; 78306; 80048; 80053; 81001; 85025; 87081; 94640; 97110; 97116; 97163; 97530; A4223; G0378; J2001; J2250; J2470

== ENCOUNTER → 2024-09-12 | Outpatient (CLI) | payer MEDICARE, MEDICAID ==
[~2024-09-12] MED LIST changes: -ACET30TA15 PO; +ALBU1.258 IN; +ALBUTEROL SULF 2.5 MG/0.5ML(0.5%) NEB SOLN ONE; -ASPI81CH43 PO; -DOXY100C79 PO; +IPR002IS HHN; -TAMIFLU PO
== END | disposition home or self-care (01) ==
LOC: RT 11:07
PROVIDERS: ATTEND Internal Medicine Pulmonary Disease
DX: J44.9 Chronic obstructive pulmonary disease, unspecified (principal)
CPT/HCPCS: 94060

== ENCOUNTER 2024-10-09 13:48 | Inpatient (IN) | payer MEDICARE, MEDICAID ==
[~2024-10-09] VITALS: Ht 172.7 cm; Wt 55.9 kg
[~2024-10-09 13:48] MED LIST changes: -ALBUTEROL SULF 2.5 MG/0.5ML(0.5%) NEB SOLN ONE
--- NOTE | 2024-10-09 14:12 | ED.PDOC ---
SOB-HPI HPI Comments 73Y M with PMHx CHF, COPD, lung CA, pacemaker, and CABG presents to ED via EMS for chief complaint SOB with wheezing. Pt was undergoing chemo treatment at facility when he became short of breath. Pt was provided with 2 puffs of albuterol while at the chemo clinic. Upon EMS arrival, pt was on 4L/min O2 with O2sat 94%. Upon ED arrival, pt is on 2L/min O2 with O2 sat 98%. Pt smokes cigarettes. No known allergies. Chief Complaint: Shortness of Breath Time Seen by MD: 14:00 Primary Care Provider: SHARMAINE Stewart notes: Medications, Allergies Information Source: Patient, Emergency Med Personnel Mode of Arrival: EMS Brought in by: EMS Severity: Mild Timing: Hours Duration: Since onset Context: At Rest PE Risk Factors: None History of: COPD, CHF Prehospital treatment: Oxygen Modifying Factors: Nothing Associated Signs and Symptoms: Other Past Medical History PAST MEDICAL HISTORY: CAD, Cancer, CHF, COPD Surgical History: CABG, Pacemaker Family History Family History: Unknown Social History Smoker: Cigarettes, Less Than 1 Pack/Day Alcohol: Occasionally Drugs: Denies Drug Use Lives In: Home Constitutional: denies: chills, diaphoresis, fatigue, fever, malaise, sweats, weakness, others EENTM: denies: blurred vision, double vision, ear bleeding, ear discharge, ear drainage, ear pain, ear ringing, eye pain, eye redness, hearing loss, mouth pain, mouth swelling, nasal discharge, nose bleeding, nose congestion, nose pa in, photophobia, tearing, throat pain, throat swelling, voice changes, others Respiratory: reports: shortness of breath, wheezing; denies: cough, hemoptysis, orthopnea, SOB at rest, SOB with excertion, stridor, others Cardiovascular: denies: chest pain, dizzy spells, diaphoresis, Dyspnea on exertion, edema, irregular heart beat, left arm pain, lightheadedness, palpitations, PND, syncope, others Gastrointestinal: denies: abdomen distended, abdominal pain, blood streaked bowels, constipated, diarrhea, dysphagia, difficulty swallowing, hematemesis, melena, nausea, poor appetite, poor fluid intake, rectal bleeding, rectal pain, vomiting, others Genitourinary: denies: burning, dysuria, flank pain, frequency, hematuria, incontinence, penile discharge, penile sore, pain, testicle pain, testicle swelling, urgency, others Neurological: denies: dizziness, fainting, headache, left sided numbness, left sided weakness, numbness, paresthesia, pre-existing deficit, right sided numbness, right sided weakness, seizure, speech problems, tingling, tremors, weakness, others Musculoskeletal: denies: back pain, gout, joint pain, joint swelling, muscle pain, muscle stiffness, neck pain, others Integumetry: denies: bruises, change in color, change in hair/nails, dryness, laceration, lesions, lumps, rash, wounds, others Allergic/Immunocompromised: denies: Difficulty Healing, Frequent Infections, Hives, Itching, others Hematologic/Lymphatic: denies: anemia, blood clots, easy bleeding, easy bruising, swollen glands, others Endocrine: denies: excessive hunger, excessive sweating, excessive thirst, excessive urination, flushing, intolerance to cold, intolerance to heat, unexplained weight gain, unexplained weight loss, others Psychiatric: denies: anxiety, bipolar disorder, depression, hopeless, panic disorder, schizophrenia, sleepless, suicidal, others All Other Systems: Reviewed and Negative Physical Exam General Appearance: Moderate Distress, Normal HEENT: Normal ENT Inspection, Pharynx Normal, TMs Normal Neck: Full Range of Motion, Non-Tender, Normal, Normal Inspection Respiratory: Chest Non-Tender, Lungs Clear, No Accessory Muscle Use, No Re spiratory Distress, Normal Breath Sounds Cardiovascular: No Edema, No JVD, No Murmur, No Gallop, Normal Peripheral Pulses, Regular Rate/Rhythm Breast Exam: Deferred Gastrointestinal: No Organomegaly, Non Tender, No Pulsatile Mass, Normal Bowel Sounds, Soft Genitalia: Deferred Pelvic: Deferred Rectal: Deferred Extremities: No calf tenderness, Normal capillary refill, Normal range of motion, Non-tender, Pedal edema Musculoskeletal : Apperance: Normal Neurologic: Alert, top precipitator operator helper II-XII nml as Tested, No Motor Deficits, Normal Affect, Normal Mood, No Sensory Deficits Cerebellar Function: NOT DONE Reflexes: NOT DONE Skin: Dry, Normal Color, Warm Peripheral Pulses: 3+ Radial (R), 3+ Radial (L) Lymphatic: No Adenopathy Was a procedure done? Was a procedure done?: No Differential Dx Differential Diagnosis: Anxiety, Asthma, Bronchitis, CHF, COPD, Pneumonia X-Ray, Labs, Meds, VS Vital Signs Date Time Temp Pulse Resp B/P (MAP) Pulse Ox O2 Delivery O2 Flow Rate FiO2 10/09/24 15:05 107 22 95 Room Air* 0 21 10/09/24 15:05 97.8 107 22 122/45 (70) 95 97.8 10/09/24 14:58 18 98 Nasal Cannula* 3 32 10/09/24 13:52 103 10/09/24 13:50 98.5 106 26 117/64 (81) 99 Lab Test 10/09/24 15:41 10/09/24 14:27 Range/Units Urine Color Light-yellow Yellow Urine Clarity Clear Clear Urine pH 6.0 5.0-9.0 Urine Specific [place] 1.015 1.001-1.035 Urine Protein Negative Negative Urine Ketones Negative Negative Urine Blood Negative Negative /uL Urine Nitrite Negative Negative Urine Bilirubin Negative Negative Urine Urobilinogen 2 H Negative mg/dL Urine Leukocyte Esterase Negative Negative /uL Urine RBC <1 0 - 3 /hpf Urine WBC <1 0 - 3 /hpf Urine Squamous Epithelial Cells Few <5 /hpf Urine Bacteria None seen None Seen /hpf Urine Glucose Trace Normal mg/dL White Blood Count 3.7 L 4.4-10.8 10^3/uL Red Blood Count 3.91 L 4.5-5.90 10^6/uL Hemoglobin 12.9 L 13.5-17.5 g/dL Hematocrit 37.5 L 41.0-53.0 % Mean Corpuscular Volume 95.9 80.0-100.0 fL Mean Corpuscular Hemoglobin 32.9 H 28.0-32.0 pg Mean Corpuscular Hemoglobin Concent 34.4 32.0-36.0 g/dL Red Cell Distribution Width 14.0 11.8-14.3 % Platelet Count 200 140-450 10^3/uL Mean Platelet Volume 7.9 6.9-10.8 fL Neutrophils (%) (Auto) 91.7 H 37.0-80.0 % Lymphocytes (%) (Auto) 4.1 L 10.0-50.0 % Monocytes (%) (Auto) 2.9 0.0-12.0 % Eosinophils (%) (Auto) 1.0 0.0-7.0 % Basophils (%) (Auto) 0.3 0.0-2.0 % Neutrophils # (Auto) 3.4 1.6-8.6 10 ^3/uL Lymphocytes # (Auto) 0.2 L 0.4-5.4 10 ^3/uL Monocytes # (Auto) 0.1 0-1.3 10 ^3/uL Eosinophils # (Auto) 0 0-0.8 10 ^3/uL Basophils # (Auto) 0 0-0.2 10 ^3/uL Nucleated Red Blood Cells 0.1 % Sodium Level 132 L 136-145 mmol/L Potassium Level 4.4 3.5-5.1 mmol/L Chloride Level 101 98-107 mmol/L Carbon Dioxide Level 28 20-31 mmol/L Anion Gap 3 L 5-15 Blood Urea Nitrogen 6 L 9-23 mg/dL Creatinine 0.83 0.700-1.30 mg/dL Glomerular Filtration Rate Calc 94 >90 mL/min BUN/Creatinine Ratio 7.2 L 10.0-20.0 Serum Glucose 177 H 74-106 mg/dL Calcium Level 9.4 8.7-10.4 mg/dL Troponin I High Sensitivity 7 </=54 ng/L Current Medications Medications (Trade) Dose Ordered Sig/Katherine Route Start Time Stop Time Status Last Admin Methylprednisolone Sodium Succinate (Solu Medrol) 125 mg ONCE ONCE IV 10/09/24 14:15 10/09/24 14:21 DC 10/09/24 14:57 Albuterol (Ventolin Medneb) 5 mg ONCE ONCE NEB 10/09/24 14:15 10/09/24 14:21 DC 10/09/24 14:57 Ipratropium [place] (Atrovent Medneb) 0.5 mg ONCE ONCE NEB 10/09/24 14:15 10/09/24 14:21 DC 10/09/24 14:[address] [address] Ph: [phone] DIAGNOSTIC IMAGING Diagnostic Imaging Report : [id number] Signed PATIENT: GIRISH FALL ACCT: [id number] UNIT: [id number] : 1950 LOC: ER ROOM / BED: / AGE / SEX: 73 / M ADM STATUS: REG ER SERVICE [id number] ORDERING PHYSICIAN: YULISA DAVIS MD PROCEDURE(s): CXRP - CHEST PORTABLE REASON: sob ORDER NUMBER(s): [id number], ACCESSION NUMBER(s): [id number] CHEST RADIOGRAPH Indication:sob Technique: Single frontal view of the chest was obtained COMPARISON: XY CHEST PORTABLE on DOS: 07/27/24, XY CHEST PORTABLE on DOS: 07/26/24, XY CHEST PORTABLE on DOS: 07/25/24 FINDINGS: Lines and Tubes: Median sternotomy. Left chest wall pacemaker. Lungs: Congestion Pleura: No effusion. No pneumothorax. Cardiomediastinal contours: Unremarkable Bones: Unremarkable IMPRESSION: Pulmonary vascular congestion ATED BY: MANDO GARRIDO MD DICTATED DATE/TIME: 10/09/241452 SIGNED BY: MANDO GARRIDO MD SIGNED DATE/TIME: 10/09/241452 CC: Patient alert. Complaining of shortness a breath. Continues to smoke cigarettes. Vitals stable. Counseled patient on effects of smoking cigarettes for 15 minutes. Tachycardia. Placed on oxygen. Increase the oxygen content. Reviewed his previous visit. He just finished course of chemotherapy. Explained to the patient. Continue cardiac monitoring. Was given steroid. Was given breathing treatment. EKG reviewed does not show any acute changes. Time of 1ST Reevaluation: 14:30 Reevaluation 1ST: Unchanged Patient Education/Counseling: Diagnosis, Treatment Family Education/Counseling: No Family Present Departure 1 Departure Time of Disposition: 14:41 Impression: Primary Impression: Acute respiratory failure Qualified Codes: J96.01 - Acute respiratory failure with hypoxia Additional Impressions: COPD exacerbation CHF (congestive heart failure) Qualified Codes: I50.43 - Acute on chronic combined systolic (congestive) and diastolic (congestive) heart failure Disposition: ADMITTED INPATIENT Admit to: Med Surg Condition: Guarded Critical Care Note Critical Care Time?: Yes (90 min-critical care time only) Stability Stability form required: No Heart Score Heart Score: Heart Score Response (Comments) Value History Slightly Suspicious 0 EKG Normal 0 Age >65 2 Risk Factors >3 or Hx ASHD 2 Troponin Normal limit 0 Total 4 I personally scribed for YULISA DAVIS MD ([email or web address]) on 10/09/24 at 14:12. Electronically submitted by Delmy Stevens ([email or web address]). I personally scribed for YULISA DAVIS MD ([email or web address] on 10/09/24 at 15:01. Electronically submitted by Delmy Stevens ([email or web address]). YULISA DAVIS MD Oct 09, 2024 14:12
[2024-10-09 14:52] LABS: Basophils # (auto) 0 10 ^3/uL (0-0.2); Basophils % (auto) 0.3 % (0.0-2.0); Eosinophils # (auto) 0 10 ^3/uL (0-0.8); Hematocrit 37.5 % (41.0-53.0); Hemoglobin 12.9 g/dL (13.5-17.5); Lymphocytes # (auto) 0.2 10 ^3/uL (0.4-5.4); Lymphocytes % (auto) 4.1 % (10.0-50.0); Mean Corpuscular Hemoglobin 32.9 pg (28.0-32.0); Mean Corpuscular Hgb Conc. 34.4 g/dL (32.0-36.0); Mean Corpuscular Volume 95.9 fL (80.0-100.0); Monocytes # (auto) 0.1 10 ^3/uL (0-1.3); Monocytes % (auto) 2.9 % (0.0-12.0); Neutrophils # (auto) 3.4 10 ^3/uL (1.6-8.6); Neutrophils % (auto) 91.7 % (37.0-80.0); Nucleated Red Blood Cells % 0.1 %; Platelet Count (auto) 200 10^3/uL (140-450); Red Blood Cells 3.91 10^6/uL (4.5-5.90); White Blood Cell 3.7 10^3/uL (4.4-10.8)
--- NOTE | 2024-10-09 14:55 | DVH ---
CHEST RADIOGRAPH Indication:sob Technique: Single frontal view of the chest was obtained COMPARISON: XY CHEST PORTABLE on DOS: 07/27/24, XY CHEST PORTABLE on DOS: 07/26/24, XY CHEST PORTABLE o n DOS: 07/25/24 FINDINGS: Lines and Tubes: Median sternotomy. Left chest wall pacemaker. Lungs: Congestion Pleura: No effusion. No pneumothorax. Cardiomediastinal contours: Unremarkable Bones: Unremarkable IMPRESSION: Pulmonary vascular congestion
[2024-10-09] MEDS: methylPREDNISolone SOD SUCC 125 MG/2 ML VL IV ONE (14:57)
[2024-10-09] MEDS: IPRATROPIUM BROM 0.5 MG/2.5ML INH SOL NEB ONE (14:57)
[2024-10-09] MEDS: ALBUTEROL SULF 2.5 MG/0.5ML(0.5%) NEB SOLN NEB ONE (14:57)
--- NOTE | 2024-10-09 14:58 | ECG ---
[facility] Test Date: 2024-10-09 Test Time: 13:52:46 Pat Name: GIRISH FALL Department: ED Room: Gender: M Licensed Physical Therapist: REAGAN : 1950 Requested By: YULISA DAVIS Order Number: [id number] Reading MD: Measurements Intervals [place] Rate: 103 P: 57 MA: 202 QRS: 92 QRSD: 86 T: -22 QT: 326 QTc: 427 Interpretive Statements Sinus tachycardia Right axis deviation Borderline T abnormalities, inferior leads Please click the below link to view image of tracing.
[2024-10-09 15:05] VITALS: PULSE 107; RESP 22; O2SAT 95
[2024-10-09 15:05] LABS: Chloride 101 mmol/L (98-107); Potassium 4.4 mmol/L (3.5-5.1); Sodium 132 mmol/L (136-145)
[2024-10-09 15:06] LABS: Anion Gap 3 (5-15); Calcium 9.4 mg/dL (8.7-10.4); Carbon Dioxide 28 mmol/L (20-31)
[2024-10-09 15:11] LABS: Glucose 177 mg/dL (74-106)
[2024-10-09 15:12] LABS: BUN/Creatinine Ratio 7.2 (10.0-20.0); Blood Urea Nitrogen 6 mg/dL (9-23)
[2024-10-09 15:43] LABS: Urine Bacteria None Seen /hpf (None Seen)
[2024-10-09 15:48] LABS: Urine Blood Negative /uL (Negative); Urine Clarity Clear (Clear); Urine Color Light-Yellow (Yellow); Urine Protein, UAD Negative (Negative); Urine Specific Gravity 1.015 (1.001-1.035); Urine Urobilinogen 2 mg/dL (Negative); Urine WBC <1 /hpf (0 - 3)
[2024-10-09 17:23] VITALS: BP 118/57; PULSE 70; RESP 18; TEMP 98.3; O2SAT 97
[2024-10-09] MEDS: FUROSEMIDE 20 MG/2 ML VIAL IV ONE (17:26)
[2024-10-09] MEDS: HYDROcodone-ACET 10/325MG TAB PO ONE (18:11)
[2024-10-09] MEDS ORDERED: NITROGLYCERIN 0.4 MG SL TAB SL PRN ×2 (21:15→21:30)
[2024-10-09] MEDS ORDERED: MORPHINE SULFATE INJ 2 MG/ml SYRG IV PRN ×2 (21:15→21:30)
[2024-10-09] MEDS ORDERED: HYDROcodone-ACET 5/325MG TAB PO PRN ×2 (21:15→21:30)
[2024-10-09] MEDS ORDERED: SODIUM CHLOR 0.9% PF (SALINE LOCK) 10ML VIAL/SYR IV SCH ×2 (22:00)
--- NOTE | 2024-10-10 03:35 | DVHHPRES ---
History of Present Illness Resident Creating Document: CHARITY COX RESIDENT History of Present Illness This is a 73-year-old male with past medical history of hypertension, hyperlipidemia, COPD on 3 L home oxygen, lung cancer on chemotherapy, CHF, status post CABG presented to the ED via EMS with a chief complaint of shortness of breath and wheezing for 1 day prior to this admission. The patient states that shortness of breath started after eating Russian bar 2 days ago and also he noticed swelling of the both legs. Pt was undergoing chemo treatment at facility when he became short of breath and provided with 2 puffs of albuterol .Upon EMS arrival, pt was on 4L/min O2 with O2sat 94%. Patient denies chest pain, dizziness, diaphoresis, abdominal pain, nausea, vomiting, sick contact, recent traveling and change in bowel and bladder habit. Past Medical History hypertension, hyperlipidemia, COPD on 3 L home oxygen, lung cancer on farhat motherapy, CHF Past Surgical History CABG, PTCA, knee surgery Family History Family history significant for cancer Smoke: 1 pack per day ALCOHOL: occassional Drugs: None Lives: with Family Review of Systems Constitutional: No: Fever, Chills, Sweats, Weakness, Malaise, Other Eyes: No: Pain, Vision change, Conjunctivae inflammation, Eyelid inflammation, Other, Redness ENT: No: Ear pain, Ear discharge, Nose pain, Nose discharge, Nose congestion, Mouth pain, Mouth swelling, Throat pain, Throat swelling, Other Respiratory: Shortness of breath; No: Cough, Dry, SOB with excertion, Wheezing, Hemoptysis, Pleuritic Pain, Sputum, Wheezing, Other Cardiovascular: Edema; No: Chest Pain, Palpitations, Orthopnea, Paroxysmal Noc. Dyspnea, Lt Headedness, Other Gastrointestinal: No: Nausea, Vomiting, Abdominal Pain, Diarrhea, Constipation, Melena, Hematochezia, Other Genitourinary: No Dysuria, No Frequency, No Incontinence, No Hematuria, No Retention, No Other Musculoskeletal: No: other, neck pain, shoulder pain, arm pain, back pain, hand pain, leg pain, foot pain Skin: No: Rash, Lesions, Jaundice, Bruising, Other Neurological: No: Weakness, Numbness, Incoordination, Change in speech, Confusion, Seizures, Other Allergies: Coded Allergies: NO KNOWN ALLERGIES (Unverified , 02/22/17) Exam Vital Signs Vital Signs Date Time Temp Pulse Resp B/P (MAP) Pulse Ox O2 Delivery O2 Flow Rate FiO2 10/09/24 17:26 118/57 10/09/24 17:23 98.3 70 18 97 98.3 10/09/24 15:05 Room Air* 0 21 Exam Physical examination: General Appearance: Alert, Oriented X3, Cooperative, No acute distress HEENT: Atraumatic, PERRLA, EOMI, Mucous membrane moist/pink Respiratory: Bilateral crackles and wheezing. Cardiovascular: Regular rate, Normal S1, Normal S2, No murmurs, no chest wall tenderness Abdominal: Normal bowel sounds, Soft, No tenderness, No hepatospenomegaly, No masses Extremities: No clubbing, No cyanosis, No edema, Normal pulses, No tenderness/swelling Skin: No rashes, No breakdown, No significant lesion Neuro: Wheel chair bound, Normal speech, Strength at 5/5 X4 ext, Normal tone, Sensation intact Psych/Mental Status: Mental status NL, Mood NL Labs/Xrays Labs Test 10/09/24 19:41 10/09/24 15:41 10/09/24 14:27 Range/Units Troponin I High Sensitivity 5 </=54 ng/L Urine Color Light-yellow Yellow Urine Clarity Clear Clear Urine pH 6.0 5.0-9.0 Urine Specific [place] 1.015 1.001-1.035 Urine Protein Negative Negative Urine Ketones Negative Negative Urine Blood Negative Negative /uL Urine Nitrite Negative Negative Urine Bilirubin Negative Negative Urine Urobilinogen 2 H Negative mg/dL Urine Leukocyte Esterase Negative Negative /uL Urine RBC <1 0 - 3 /hpf Urine WBC <1 0 - 3 /hpf Urine Squamous Epithelial Cells Few <5 /hpf Urine Bacteria None seen None Seen /hpf Urine Glucose Trace Normal mg/dL White Blood Count 3.7 L 4.4-10.8 10^3/uL Red Blood Count 3.91 L 4.5-5.90 10^6/uL Hemoglobin 12.9 L 13.5-17.5 g/dL Hematocrit 37.5 L 41.0-53.0 % Mean Corpuscular Volume 95.9 80.0-100.0 fL Mean Corpuscular Hemoglobin 32.9 H 28.0-32.0 pg Mean Corpuscular Hemoglobin Concent 34.4 32.0-36.0 g/dL Red Cell Distribution Width 14.0 11.8-14.3 % Platelet Count 200 140-450 10^3/uL Mean Platelet Volume 7.9 6.9-10.8 fL Neutrophils (%) (Auto) 91.7 H 37.0-80.0 % Lymphocytes (%) (Auto) 4.1 L 10.0-50.0 % Monocytes (%) (Auto) 2.9 0.0-12.0 % Eosinophils (%) (Auto) 1.0 0.0-7.0 % Basophils (%) (Auto) 0.3 0.0-2.0 % Neutrophils # (Auto) 3.4 1.6-8.6 10 ^3/uL Lymphocytes # (Auto) 0.2 L 0.4-5.4 10 ^3/uL Monocytes # (Auto) 0.1 0-1.3 10 ^3/uL Eosinophils # (Auto) 0 0-0.8 10 ^3/uL Basophils # (Auto) 0 0-0.2 10 ^3/uL Nucleated Red Blood Cells 0.1 % Sodium Level 132 L 136-145 mmol/L Potassium Level 4.4 3.5-5.1 mmol/L Chloride Level 101 98-107 mmol/L Carbon Dioxide Level 28 20-31 mmol/L Anion Gap 3 L 5-15 Blood Urea Nitrogen 6 L 9-23 mg/dL Creatinine 0.83 0.700-1.30 mg/dL Glomerular Filtration Rate Calc 94 >90 mL/min BUN/Creatinine Ratio 7.2 L 10.0-20.0 Serum Glucose 177 H 74-106 mg/dL Calcium Level 9.4 8.7-10.4 mg/dL Assessment/Plan Assessment/Plan Assessment and plan: # Acute on chronic respiratory failure due to possible acute exacerbation of CHF - Patient is on 4 L oxygen with saturation 94% - Chest x-ray revealed possible pulmonary vascular congestion - Ordered BNP The patient left AMA just after admission before treatment given. Plan discussed with: Patient, Other My Orders Orders - CHARITY COX RESIDENT Procedure Category Date Status Time Admit ADMIT 10/09/24 Transmitted 21:13 Code Status CODE 10/09/24 Transmitted 21:13 Oxygen Per Hour RT 10/09/24 Transmitted 21:13 Pt Request For Service PT 10/09/24 Logged 21:13 Oxygen By Nasal RT 10/09/24 Transmitted Cannula 21:13 Date of Service: Oct 09, 2024 Billing Provider: STEPHON ISRAEL MD Common Visit Codes: 72574-FVNDUWX INP/OBS CARE (HIGH) Secondary Visit Codes: 15916-[id number] CARE PLAN 30 MINUTES KENNYPOPPYCHARITY RESIDENT Oct 10, 2024 03:35 STEPHON ISRAEL MD Oct 10, 2024 18:22
[2024-10-10] MEDS ORDERED: ENOXAPARIN SOD 40 MG/0.4 ML SYRINGE SC SCH ×2 (10:00)
== END 2024-10-09 21:21 | disposition left against medical advice (07) | DRG 291 ==
LOC: EDBD 13:48 → ER 13:48 → OVERFLOW 21:13 → ER 21:22
DX: I11.0 Hypertensive heart disease with heart failure (principal); I50.43 Acute on chronic combined systolic (congestive) and diastolic (congestive) heart failure; J96.21 Acute and chronic respiratory failure with hypoxia; J44.1 Chronic obstructive pulmonary disease with (acute) exacerbation; I25.10 Atherosclerotic heart disease of native coronary artery without angina pectoris; F17.210 Nicotine dependence, cigarettes, uncomplicated; E78.5 Hyperlipidemia, unspecified; Z53.29 Procedure and treatment not carried out because of patient's decision for other reasons; Z95.1 Presence of aortocoronary bypass graft; Z95.0 Presence of cardiac pacemaker
CPT/HCPCS: 36415; 71045; 80048; 81001; 84484; 85025; 93005; 94640; 99291; G0378